=== PATIENT | male | born 1970 | race American Indian/Alaskan Native ===

== ENCOUNTER 2017-04-01 02:44 | Emergency (ER) | payer MEDICARE, OTHER ==
[2017-04-01] MEDS ORDERED: APRESOLINE ONE (03:36)
[2017-04-01] MEDS ORDERED: CATAPRES ONE (03:36)
== END 2017-04-01 03:30 | disposition left against medical advice (07) ==
LOC: ED 02:44
DX: M25.569 Pain in unspecified knee (principal); Z53.21 Procedure and treatment not carried out due to patient leaving prior to being seen by health care provider

== ENCOUNTER 2017-04-04 01:32 | Emergency (ER) | payer MEDICARE, OTHER ==
[2017-04-04] MEDS ORDERED: TYLENOL ONE (02:06)
[2017-04-04] MEDS ORDERED: TYLENOL PO ONE (02:12)
[2017-04-04] MEDS ORDERED: NACL 0.9% 500 ML IR ONE (03:12)
[2017-04-04] MEDS ORDERED: NACL 0.9% IR ONE (03:17)
--- NOTE | 2017-04-04 03:47 | Emergency Department Report ---
- General Chief Complaint: Wound/Laceration Stated Complaint: FINGER SORE/PAIN Time Seen by Provider: 04/04/17 03:34 Source: patient Mode of arrival: Ambulatory Limitations: No Limitations - History of Present Illness Initial Comments: 46-year-old male past medical history PTSD schizophrenia presents with complaint of right distal fifth finger laceration. Patient states he was cooking using a steak knife and accidentally ran knife across the dorsal side of his fifth finger between MCP and PIP joint. Visible one-inch laceration horizontal very straight on finger. Minimal bleeding. Patient states his tetanus is up-to-date. Denies any other injuries. aao 3 fully cooperative states that it was accidental. Onset/Timin -: hour(s) Extremity Location: Right: Hand (visible laceration across fifth digit) Place: home Patient Tetanus UTD: Yes Context: accidental Associated Symptoms: none - Related Data Home Medications Medication Instructions Recorded Confirmed Last Taken FLUoxetine [Prozac] 20 mg PO QDAY 07/17/13 07/27/14 11/01/13 09:00 Lurasidone HCl [Latuda] 120 mg PO QDAY 07/17/13 07/28/14 11/01/13 09:00 Paliperidone Palmitate [Invega 234 mg IM QMONTH 07/17/13 07/28/14 11/01/13 09:00 Sustenna] Previous Rx's Medication Instructions Recorded Last Taken Type LORazepam [Ativan] 0.5 mg PO QHS #10 tablet 11/02/13 Unknown Rx traMADol [Ultram 50 MG tab] 50 mg PO Q6HR PRN #15 tablet 05/23/16 Unknown Rx Cephalexin [Keflex] 500 mg PO Q12HR #10 cap 04/04/17 Unknown Rx Ibuprofen [Motrin] 600 mg PO Q8H PRN #20 tablet 04/04/17 Unknown Rx Allergies Allergy/AdvReac Type Severity Reaction Status Date / Time No Known Allergies Allergy Verified 04/01/17 03:42 ED Review of Systems ROS: Stated complaint: FINGER SORE/PAIN Other details as noted in HPI Constitutional: denies: chills, fever Eyes: denies: eye pain, eye discharge, vision change ENT: denies: ear pain, throat pain Respiratory: denies: cough, shortness of breath, wheezing Cardiovascular: denies: chest pain, palpitations Endocrine: no symptoms reported Gastrointestinal: denies: abdominal pain, nausea, diarrhea Genitourinary: denies: urgency, dysuria Musculoskeletal: denies: back pain, joint swelling, arthralgia Skin: denies: rash, lesions Neurological: denies: headache, weakness, paresthesias Psychiatric: denies: anxiety, depression Hematological/Lymphatic: denies: easy bleeding, easy bruising ED Past Medical Hx - Past Medical History Previous Medical History?: Yes Hx Psychiatric Treatment: Yes (PTSD, Schizophrenia) - Surgical History Past Surgical History?: Yes Hx Cholecystectomy: Yes Hx Appendectomy: Yes - Social History Smoking Status: Current Every Day Smoker Substance Use Type: Alcohol - Medications Home Medications: Home Medications Medication Instructions Recorded Confirmed Last Taken Type FLUoxetine [Prozac] 20 mg PO QDAY 07/17/13 07/27/14 11/01/13 09:00 History Lurasidone HCl [Latuda] 120 mg PO QDAY 07/17/13 07/28/14 11/01/13 09:00 History Paliperidone Palmitate [Invega 234 mg IM QMONTH 07/17/13 07/28/14 11/01/13 09: 00 History Sustenna] LORazepam [Ativan] 0.5 mg PO QHS #10 tablet 11/02/13 07/27/14 Unknown Rx traMADol [Ultram 50 MG tab] 50 mg PO Q6HR PRN #15 tablet 05/23/16 Unknown Rx Cephalexin [Keflex] 500 mg PO Q12HR #10 cap 04/04/17 Unknown Rx Ibuprofen [Motrin] 600 mg PO Q8H PRN #20 tablet 04/04/17 Unknown Rx ED Physical Exam - General Limitations: No Limitations General appearance: alert, in no apparent distress - Head Head exam: Present: atraumatic, normocephalic - Eye Eye exam: Present: normal appearance - ENT ENT exam: Present: mucous membranes moist - Neck Neck exam: Present: normal inspection - Respiratory Respiratory exam: Present: normal lung sounds bilaterally. Absent: respiratory distress - Cardiovascular Cardiovascular Exam: Present: regular rate, normal rhythm. Absent: systolic murmur, diastolic murmur, rubs, gallop - GI/Abdominal GI/Abdominal exam: Present: soft, normal bowel sounds - Rectal Rectal exam: Present: deferred - Extremities Exam Extremities exam: Present: normal inspection - Expanded Upper Extremity Exam Right General: Present: other Shoulder Exam: Present: normal inspection, full ROM Upper Arm exam: Present: normal inspection, full ROM Elbow exam: Present: normal inspection, full ROM Forearm Wrist exam: Present: normal inspection, full ROM Hand Wrist exam: Present: laceration Hand L/R Front: 1 - Positive: laceration (1 inch horizontal laceration minimal separation of skin) Neuro motor exam: Present: wrist extension intact, thumb opposition intact, thumb IP flexion intact, thumb adduction intact, fingers 2-5 abduction intact Vascular: Present: normal capillary refill (capillary refill less than one second in all fingers, distal radial and ulnar pulses intact range of motion fingers fully intact on clinical exam) - Back Exam Back exam: Present: normal inspection - Neurological Exam Neurological exam: Present: alert, oriented X3 - Psychiatric Psychiatric exam: Present: normal affect, normal mood - Skin Skin exam: Present: warm, dry, intact, normal color. Absent: rash ED Course Vital Signs 04/04/17 02:00 Temperature 98.1 F Pulse Rate 86 Respiratory 16 Rate Blood Pressure 128/75 [Right] O2 Sat by Pulse 100 Oximetry - Laceration /Wound Repair Right Finger Wound Location: upper extremity (right pinky finger) Wound Length (cm): 2 Wound's Depth, Shape: superficial, linear Irrigated w/ Saline (ccs): 1,000 Betadine Prep?: Yes Anesthesia: Lidocaine w/ Epi Volume Anesthetic (ccs): 3 Wound Debrided: minimal Wound Repaired With: sutures Suture Size/Type: 4:0, nylon Number of Sutures: 6 Layer Closure?: No Sterile Dressing Applied?: Yes (gauze with finger splint) Progress: Procedure tolerated well minimal bleeding good closure achieved ED Medical Decision Making - Medical Decision Making A/P: Right pinky finger Laceration 1-sutures to be removed in 10-12 days 2-tetanus up-to-date patient states he received a tetanus updated within the last 5 years 3-Motrin when necessary, triple antibiotic ointment 4- pt advised to return to the ED for any fevers chills pus drainage erythema at site of laceration 5- x-ray unremarkable, patient provided with finger splint for protection of wound site. Range of motion at the DIP PIP and MCP intact against resistance, distal sensation is intact and capillary refill is less than 1 second in the finger. Critical care attestation.: If time is entered above; I have spent that time in minutes in the direct care of this critically ill patient, excluding procedure time. ED Disposition Clinical Impression: Finger laceration Qualifiers: Encounter type: initial encounter Finger: little finger Damage to nail status: with damage Foreign body presence: without foreign body Laterality: right Qualified Code(s): S61.316A - Laceration without foreign body of right little finger with damage to nail, initial encounter Disposition: TO HOME OR SELFCARE Is pt being admited?: No Does the pt Need Aspirin: No Condition: Stable Instructions: Suture Care (ED), Laceration (ED) Additional Instructions: Patient to return to the ED or urgent care for suture removal in 10-12 days Prescriptions: Cephalexin [Keflex] 500 mg PO Q12HR #10 cap Ibuprofen [Motrin] 600 mg PO Q8H PRN #20 tablet PRN Reason: Pain Referrals: [facility] [Outside] - 3-5 Days Forms: Work/School Release Form(ED) Time of Disposition: 04:25
--- NOTE | 2017-04-04 03:56 | XRay Report ---
FINAL REPORT PROCEDURE: XR HAND 3 RT TECHNIQUE: Right hand radiographs, AP, lateral, and oblique views. CPT 48726 HISTORY: lac, send for report COMPARISON: No prior studies are available for comparison. FINDINGS: Fracture (s) and/or Dislocation(s): None . Alignment: Normal . Joint space(s): Normal . Soft tissues: Normal . Bone mineralization: Normal . Foreign bodies: None . IMPRESSION: Normal Examination .
[2017-04-04 04:39] VITALS: BP 136/85
== END 2017-04-04 04:39 | disposition home or self-care (01) ==
LOC: ED 01:32
DX: S61.216A Laceration without foreign body of right little finger without damage to nail, initial encounter (principal); F20.9 Schizophrenia, unspecified; F43.10 Post-traumatic stress disorder, unspecified; F17.200 Nicotine dependence, unspecified, uncomplicated; W26.0XXA Contact with knife, initial encounter; Y93.G3 Activity, cooking and baking; Y99.8 Other external cause status; Y92.89 Other specified places as the place of occurrence of the external cause

== ENCOUNTER 2017-06-08 15:52 | Emergency (ER) | payer MEDICARE, OTHER ==
[2017-06-08 16:28] LABS: Urine Drugs of Abuse Note Disclamer
[2017-06-08 16:47] LABS: Bilirubin,Urine NEG (Negative); Blood,Urine MOD (Negative); Ketones,Urine NEG (Negative); Leukocyte Esterase,Urine NEG (Negative); Mucus,Urine FEW /HPF; Nitrite,Urine NEG (Negative); Urobilinogen,Urine < 2.0 mg/dL (<2.0)
[2017-06-08 17:07] LABS: Basophils % (Auto) 0.7 % (0.0-1.8); Eosinophils % (Auto) 0.3 % (0.0-4.3); Hematocrit 43.2 % (35.5-45.6); Hemoglobin 14.5 gm/dl (11.8-15.2); Mean Corpuscular HGB Conc 33 % (32-34); Mean Corpuscular Hemoglobin 30 pg (28-32); Mean Corpuscular Volume 88 fl (84-94); Platelet Count 253 K/mm3 (140-440); Red Cell Distribution Width 14.1 % (13.2-15.2); White Blood Count 9.9 K/mm3 (4.5-11.0)
[2017-06-08 17:10] LABS: Anion Gap 19 mmol/L; BUN/Creatinine Ratio 11.81; Blood Urea Nitrogen 13 mg/dL (9-20); Calcium 8.8 mg/dL (8.4-10.2); Carbon Dioxide 23 mmol/L (22-30); Chloride 101.3 mmol/L (98-107); Glucose 110 mg/dL (75-100); Potassium 3.9 mmol/L (3.6-5.0); Sodium 139 mmol/L (137-145)
--- NOTE | 2017-06-08 18:32 | Emergency Department Report ---
HPI - General Chief Complaint: Psych Time Seen by Provider: 06/08/17 16:30 - HPI HPI: 46-year-old male presents to the emergency department via police after he called them saying that he wanted to find a way to get to the government because they owe him a [employer] automobile. The patient also says that he feels that all of the Germans and Jews need to go back to the gas chamber and he is going to try and help to kill them. The patient has multiple other nonsensical and/or tangential thoughts or complaints. He says that his only past medical history is PTSD. The patient is on buspirone, Risperdal, among other psychiatric medications. ED Past Medical Hx - Past Medical History Hx Psychiatric Treatment: Yes (PTSD, Schizophrenia) - Surgical History Hx Cholecystectomy: Yes Hx Appendectomy: Yes - Social History Smoking Status: Never Smoker Substance Use Type: None - Medications Home Medications: Home Medications Medication Instructions Recorded Confirmed Last Taken Type FLUoxetine [Prozac] 20 mg PO QDAY 07/17/13 07/27/14 11/01/13 09:00 History Lurasidone HCl [Latuda] 120 mg PO QDAY 07/17/13 07/28/14 11/01/13 09:00 History Paliperidone Palmitate [Invega 234 mg IM QMONTH 07/17/13 07/28/14 11/01/13 09: 00 History Sustenna] LORazepam [Ativan] 0.5 mg PO QHS #10 tablet 11/02/13 07/27/14 Unknown Rx traMADol [Ultram 50 MG tab] 50 mg PO Q6HR PRN #15 tablet 05/23/16 Unknown Rx Cephalexin [Keflex] 500 mg PO Q12HR #10 cap 04/04/17 Unknown Rx Ibuprofen [Motrin] 600 mg PO Q8H PRN #20 tablet 04/04/17 Unknown Rx ED Review of Systems ROS: Stated complaint: 1013 Other details as noted in HPI Comment: All other systems reviewed and negative Constitutional: denies: chills, fever Eyes: denies: eye pain, eye discharge, vision change ENT: denies: ear pain, throat pain Respiratory: denies: cough, shortness of breath, wheezing Cardiovascular: denies: chest pain, palpitations Gastrointestinal: denies: abdominal pain, nausea, diarrhea Genitourinary: denies: urgency, dysuria Musculoskeletal: denies: back pain, joint swelling, arthralgia Skin: denies: rash, lesions Neurological: denies: headache, weakness, paresthesias Psychiatric: homicidal thoughts. denies: auditory hallucinations, visual hallucinations Physical Exam - Physical Exam Vital Signs: Vital Signs 06/08/17 16:02 Temperature 99 F Pulse Rate 78 Respiratory 18 Rate Blood Pressure 169/91 O2 Sat by Pulse 99 Oximetry Physical Exam: GENERAL: The patient is well-developed well-nourished. HENT: Normocephalic. Atraumatic. Patient has moist mucous membranes. EYES: Extraocular motions are intact. Pupils equal reactive to light bilaterally. NECK: Supple. Trachea is midline. CHEST/LUNGS: Clear to auscultation. There is no respiratory distress noted. HEART/CARDIOVASCULAR: Regular. There is no tachycardia. There is no gallop rub or murmur. ABDOMEN: Abdomen is soft, nontender. Patient has normal bowel sounds. There is no abdominal distention. SKIN: There is no rash. There is no edema. There is no diaphoresis. NEURO: The patient is awake, alert, and oriented. The patient is cooperative. The patient has no focal neurologic deficits. Normal gait. No slurred speech. MUSCULOSKELETAL: There is no tenderness or deformity. There is no limitation range of motion. There is no evidence of acute injury. PSYCH: Patient displays tangential thoughts and delusions and has pressured speech. ED Course Vital Signs 06/08/17 16:02 Temperature 99 F Pulse Rate 78 Respiratory 18 Rate Blood Pressure 169/91 O2 Sat by Pulse 99 Oximetry ED Medical Decision Making - Lab Data Result diagrams: 06/08/17 16:39 06/08/17 16:39 - Medical Decision Making 46-year-old male presents to the emergency department after calling the police and showing them that he was having delusions and/or psychosis. The patient has homicidal ideations towards Germans and [place] people. He also is delusional that the government is going to buy him an automobile and that he is going to do that by getting to them by [facility] police. He appears to have more psychiatric issues then just PTSD. He has been made a 1013 secondary to his psychosis and homicidal ideations. Labs are unremarkable. Vital signs stable. He appears medically cleared for psychiatric placement. - Differential Diagnosis schizophrenia, bipolar disorder, schizoaffective, substance abuse Critical Care Time: No Critical care attestation.: If time is entered above; I have spent that time in minutes in the direct care of this critically ill patient, excluding procedure time. ED Disposition Clinical Impression: Homicidal ideations Psychosis Qualifiers: Psychosis type: unspecified psychosis type Qualified Code(s): F29 - Unspecified psychosis not due to a substance or known physiological condition Hypertension Qualifiers: Hypertension type: essential hypertension Qualified Code(s): I10 - Essential ( primary) hypertension Disposition: DC/TX-65 PSY HOSP/PSY UNIT Is pt being admited?: No Condition: Stable Instructions: Hypertension (ED) Referrals: PRIMARY CAREMD [Primary Care Provider] - 3-5 Days Time of Disposition: 18:34
[2017-06-08] MEDS ORDERED: CATAPRES PO ONE (18:34)
[2017-06-09] MEDS ORDERED: ATIVAN IM ONE (01:49)
[2017-06-09] MEDS ORDERED: GEODON IM ONE (01:49)
[2017-06-09] MEDS ORDERED: ATIVAN ONE (01:55)
[2017-06-09] MEDS ORDERED: WATER FOR INJ (PF) 10 ML ONE (01:56)
--- NOTE | 2017-06-09 13:33 | Consultation ---
History of Present Illness - Reason for Consult Consult date: 06/09/17 Reason for consult: Mental Health Evaluation Requesting physician: DERICK CONTE - Chief Complaint Chief complaint: "It's the government" - History of Present Psychiatric Illness 46-year-old male presents to the emergency department via police after he called them saying that he wanted to find a way to get to the [place] because they owe him a [employer] automobile. Today the patient is irritable, anxious with a disorganized thought process. He stated that he called the police to help him get a ride to the [place] to sign papers. He stated that the [employer] is "screwing" up his money. He went on to talk about how "black people" don't like him. After asking him to elaborate more about his feeling reference the government and black people he refused. He stated there's a bus stop in front of his home that's causing him anxiety and he worries about his safety. The patient had to be redirected multiple times, possibly responding to some type of stimuli. Also, I had to interject to try to keep the patient on the right topic. He denies SI/HI's, AVH's, and depression. He denies sleep disturbance and a poor appetite. He admitted to using cocaine 2 days ago, but denies excessive alcohol consumption. He stated taking Risperdal, Buspar, the Invega injection and Prozac in the past. Medications and Allergies Allergies Allergy/AdvReac Type Severity Reaction Status Date / Time No Known Allergies Allergy Verified 06/08/17 16:02 Home Medications Medication Instructions Recorded Confirmed Last Taken Type FLUoxetine [Prozac] 20 mg PO QDAY 07/17/13 07/27/14 11/01/13 09:00 History Lurasidone HCl [Latuda] 120 mg PO QDAY 07/17/13 07/28/14 11/01/13 09:00 History Paliperidone Palmitate [Invega 234 mg IM QMONTH 07/17/13 07/28/14 11/01/13 09: 00 History Sustenna] LORazepam [Ativan] 0.5 mg PO QHS #10 tablet 11/02/13 07/27/14 Unknown Rx traMADol [Ultram 50 MG tab] 50 mg PO Q6HR PRN #15 tablet 05/23/16 Unknown Rx Cephalexin [Keflex] 500 mg PO Q12HR #10 cap 04/04/17 Unknown Rx Ibuprofen [Motrin] 600 mg PO Q8H PRN #20 tablet 04/04/17 Unknown Rx Past psychiatric history - Past Medical History Past Surgical History: Other (Cholecystectomy and Appendectomy) - past Psychiatric treatment and history Psych: Schizophrenia psychiatric treatment history: He stated that he see a psychiatrist at the [place]. Denies a fam psy hx. - Social History Social history: Lives alone (College graduate) Mental Status Exam - Vital signs Last Vital Signs Temp 98.1 F 06/08/17 19:10 Pulse 79 06/08/17 19:10 Resp 18 06/09/17 11:37 BP 143/89 06/08/17 23:14 Pulse Ox 99 06/08/17 19:10 - Exam Narrative exam: ROS: (+) psychosis MSE: Appearance: irritable, anxious Behavior: regular eye contact Speech: loud rambling Mood: "I am okay" Affect: labile Thought Process: disorganized Thought Content: denies SI/HI's and AVH's, paranoid Motor Activity: ambulatory Cognition: A/Ox 3 Insight: limited Judgment: limited Results Result Diagrams: 06/08/17 16:39 06/08/17 16:39 Abnormal lab results 06/08/17 Range/Units 16:39 Glucose 110 H (75-100) mg/dL All other labs normal. Assessment and Plan Assessment and plan: Impression: Historical Dx: Schizophrenia. Acute psychosis. Substance Use DO ( cocaine). Today the patient is irritable, anxious with a disorganized thought process. Positive for cocaine. DDx: R/O Bipolar, R/O Substance Induced Psychosis, Schizaffective DO Recommendation/Plan: Continue 1013 with placement to inpatient psy services. Start Buspar 10 mg PO BID, Risperdal 1 mg PO HS for schizophrenia and Cogentin 0 /5 mg PO HS for EPS prevention. Discussed possible metabolic side effects of Risperdal with patient.
[2017-06-09] MEDS ORDERED: BUSPAR PO SCH (14:30)
[2017-06-09] MEDS ORDERED: RisperDAL PO SCH (22:00)
[2017-06-09] MEDS ORDERED: COGENTIN PO SCH (22:00)
--- NOTE | 2017-06-10 16:09 | Progress Note ---
Subjective - Reason for Consult Consult date: 06/10/17 Reason for consult: psychiatric follow up - Chief Complaint Chief complaint: "I don't like black people." 46-year-old male presented to the emergency department via police after he called them saying that he wanted to find a way to get to the government because they owe him a [employer] automobile. Today the patient is irritable, anxious with a disorganized thought process. He, again, as stated in the previous evaluation, stated that he called the police to help him get a ride to the [place] to sign papers. The patient had to be redirected multiple times. He denies SI/HI's, AVH's, and depression. Mental Status Exam - Exam Narrative exam: ROS: (+) psychosis MSE: Appearance: irritable, anxious Behavior: regular eye contact Speech: loud, tangential Mood: agitated Affect: labile Thought Process: disorganized Thought Content: denies SI/HI's and AVH's, paranoid Motor Activity: ambulatory Cognition: A/Ox 3 Insight: limited Judgment: limited Assessment and plan: Impression: Historical Dx: Schizophrenia. Acute psychosis. Substance Use DO ( cocaine). Today the patient is irritable, anxious with a disorganized thought process. Positive for cocaine. DDx: R/O Bipolar, R/O Substance Induced Psychosis, Schizaffective DO Recommendation/Plan: Continue 1013 with placement to inpatient psy services. Continue Buspar 10 mg PO BID, Risperdal 1 mg PO HS for schizophrenia and Cogentin 0.5 mg PO HS for EPS prevention. Mental Status Exam - Vital signs Last Vital Signs Temp 98 F 06/10/17 14:45 Pulse 76 06/10/17 14:45 Resp 18 06/10/17 14:45 BP 119/78 06/10/17 14:45 Pulse Ox 98 06/10/17 14:45
[2017-06-10 17:50] VITALS: BP 114/70
[2017-06-10] MEDS ORDERED: RisperDAL PO SCH (22:00)
== END 2017-06-10 18:59 ==
LOC: ED 15:52 → EEVIPCON 15:52 → ED 06-10 18:59
DX: R45.850 Homicidal ideations (principal); F29 Unspecified psychosis not due to a substance or known physiological condition; I10 Essential (primary) hypertension; F20.9 Schizophrenia, unspecified
CPT/HCPCS: 36415; 80048; 80307; 81001; 85025; 96372; 99285; G0480; J2060; J3486; 80320

== ENCOUNTER 2017-11-23 13:15 | Emergency (ER) | payer MEDICARE ==
[2017-11-23] MEDS ORDERED: HALDOL ONE (13:29)
[2017-11-23] MEDS ORDERED: BENADRYL ONE (13:29)
[2017-11-23] MEDS ORDERED: ATIVAN ONE (13:29)
[2017-11-23] MEDS ORDERED: HALDOL IM ONE (13:51)
[2017-11-23] MEDS ORDERED: BENADRYL IM ONE (13:51)
[2017-11-23] MEDS ORDERED: ATIVAN IM ONE (13:52)
[2017-11-23 14:07] LABS: Basophils % (Auto) 0.4 % (0.0-1.8); Eosinophils # (Auto) 0.2 K/mm3 (0.0-0.4); Eosinophils % (Auto) 2.3 % (0.0-4.3); Hematocrit 40.9 % (35.5-45.6); Hemoglobin 13.7 gm/dl (11.8-15.2); Lymphocytes # (Auto) 3.8 K/mm3 (1.2-5.4); Lymphocytes % (Auto) 52.2 % (13.4-35.0); Mean Corpuscular HGB Conc 33 % (32-34); Mean Corpuscular Hemoglobin 29 pg (28-32); Mean Corpuscular Volume 88 fl (84-94); Monocytes # (Auto) 0.5 K/mm3 (0.0-0.8); Monocytes % (Auto) 7.1 % (0.0-7.3); Platelet Count 207 K/mm3 (140-440); Red Blood Count 4.67 M/mm3 (3.65-5.03); Red Cell Distribution Width 12.9 % (13.2-15.2)
[2017-11-23 14:15] LABS: BUN/Creatinine Ratio 15; Blood Urea Nitrogen 12 mg/dL (9-20); Calcium 8.7 mg/dL (8.4-10.2); Hemolysis Index 4
--- NOTE | 2017-11-23 15:45 | Emergency Department Report ---
HPI - General Time Seen by Provider: 11/23/17 13:39 - HPI HPI: This is a 46-year-old -[place] male presents to the emergency department via PD after just being released from alf. Patient has a history of schizophrenia and apparently was refusing all of his medication while he was incarcerated. As soon as he left alf he apparently started exhibiting signs of acute psychosis. The secretary of police said that he told him that he wanted to harm himself. Since the patient has been in the emergency department he has been showing disorganized thoughts, making threats towards ED staff. He keeps rambling about some type of orthodox persecution. Patient is not cooperative and is a poor historian. ED Past Medical Hx - Past Medical History Hx Psychiatric Treatment: Yes (PTSD, Schizophrenia) - Surgical History Hx Cholecystectomy: Yes Hx Appendectomy: Yes - Social History Smoking Status: Never Smoker Substance Use Type: None - Medications Home Medications: Home Medications Medication Instructions Recorded Confirmed Last Taken Type FLUoxetine [Prozac] 20 mg PO QDAY 07/17/13 11/23/17 11/01/13 09:00 History Lurasidone HCl [Latuda] 120 mg PO QDAY 07/17/13 11/23/17 11/01/13 09:00 History Paliperidone Palmitate(Nf) [Invega 234 mg IM QMONTH 07/17/13 11/23/17 11/01/13 09:00 History Sustenna] LORazepam [Ativan] 0.5 mg PO QHS #10 tablet 11/02/13 11/23/17 Unknown Rx traMADol [Ultram 50 MG tab] 50 mg PO Q6HR PRN #15 tablet 05/23/16 11/23/17 Unknown Rx Cephalexin [Keflex] 500 mg PO Q12HR #10 cap 04/04/17 11/23/17 Unknown Rx Ibuprofen [Motrin] 600 mg PO Q8H PRN #20 tablet 04/04/17 11/23/17 Unknown Rx ED Review of Systems ROS: Stated complaint: MH EVAL Other details as noted in HPI Comment: Unobtainable due to pts medical conditions Physical Exam - Physical Exam Physical Exam: GENERAL: The patient is well-developed well-nourished. HENT: Normocephalic. Atraumatic. Patient has moist mucous membranes. EYES: Extraocular motions are intact. Pupils equal reactive to light bilaterally. NECK: Supple. Trachea is midline. CHEST/LUNGS: Clear to auscultation. There is no respiratory distress noted. HEART/CARDIOVASCULAR: Regular. There is no tachycardia. There is no murmur. ABDOMEN: Abdomen is soft, nontender. Patient has normal bowel sounds. There is no abdominal distention. SKIN: Skin is warm and dry. NEURO: Patient is awake and follows some commands. Normal speech. Normal gait. MUSCULOSKELETAL: There is no tenderness or deformity. There is no limitation range of motion. There is no evidence of acute injury. PSYCH: Disorganized speech, tangential thoughts, pressured speech. ED Medical Decision Making - Lab Data Result diagrams: 11/23/17 13:47 11/23/17 13:47 - Medical Decision Making Patient presented for a mental health evaluation and appears to have some acute psychosis. Allegedly he was very aggressive prior to arrival. He certainly is not cooperative here. He appears to have some disorganized and pressured speech and tangential thoughts. He has made some threats towards ED staff. Allegedly he told the secretary of police that he wanted to harm himself. For these reasons patient has been made a 1013. His blood work has come back and does not show any significant abnormalities or any etiology of his symptoms. We are waiting for urine drug screen and urinalysis I do not believe that any of that would keep him from being medically cleared for psychiatric placement. Critical Care Time: No Critical care attestation.: If time is entered above; I have spent that time in minutes in the direct care of this critically ill patient, excluding procedure time. ED Disposition Clinical Impression: Delusions Psychosis Qualifiers: Psychosis type: unspecified psychosis type Qualified Code(s): F29 - Unspecified psychosis not due to a substance or known physiological condition Disposition: DC/TX-65 PSY HOSP/PSY UNIT Is pt being admited?: No Condition: Stable Referrals: PRIMARY CARE [Primary Care Provider] - 3-5 Days
[2017-11-24 04:49] LABS: Bilirubin,Urine NEG (Negative); Blood,Urine NEG (Negative); Color,Urine Yellow (Yellow); Mucus,Urine FEW /HPF; Protein,Urine <15 mg/dL mg/dL (Negative); WBC,Urine < 1.0 /HPF (0.0-6.0)
[2017-11-24 04:54] LABS: Amphetamine Screen,Urine PRESUMPTIVE NEGATIVE; Benzodiazepines Screen,Urine PRESUMPTIVE NEGATIVE; Cannabinoid Screen,Urine PRESUMPTIVE NEGATIVE; Cocaine Screen,Urine PRESUMPTIVE NEGATIVE; Methadone Screen,Urine PRESUMPTIVE NEGATIVE; Opiate Screen,Urine PRESUMPTIVE NEGATIVE
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
[2017-11-24] MEDS ORDERED: RisperDAL PO SCH (22:00)
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
[2017-11-25] MEDS: RisperDAL PO SCH (22:18)
[2017-11-26] MEDS: RisperDAL PO SCH ×2 (10:58→22:30)
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
--- NOTE | 2017-11-27 12:12 | Progress Note ---
Subjective - Reason for Consult Consult date: 11/27/17 Reason for consult: Psychiatry Follow-up - Chief Complaint Chief complaint: "I need to leave" This is a 46-year-old -Surinamese male presents to the emergency department via PD after just being released from detention. Today the patient is calm , but hyper verbal during the assessment. When asked about his mental dx, he stated that he receive the monthly Invega injection for PTSD and anxiety. The patient is still disorganized during the interview. He denies SI/HIs and AVH's. He denies any side effects of his medication. Mental Status Exam - Vital signs Last Vital Signs Temp 98 F 11/26/17 20:00 Pulse 67 11/26/17 20:00 Resp 20 11/27/17 10:03 BP 117/76 11/26/17 20:00 Pulse Ox 99 11/26/17 20:00 - Exam Narrative exam: MSE: Appearance: calm, cooperative Behavior: regular eye contact Speech: pressured speech, hyper verbal Mood: "okay" Affect: congruent to mood Thought Process: tangential Thought Content: denies SI/HI's and AVH's, disorganized Motor Activity: ambulatory Cognition: A/O x 3 Insight: limited Judgment: limited Assessment and Plan Impression: Unspecified Psychosis on admission. Today the patient is calm and cooperative during the assessment. DDx: Schizophrenia, R/O Bipolar DO Recommendation/Plan: Continue 1013 with placement to inpatient psy services. Continue Risperdal 1 mg PO BID for psychosis/mood. Discussed possible metabolic side effects of Risperdal with patient.
[2017-11-27] MEDS: RisperDAL PO SCH ×2 (12:42→22:52)
[2017-11-27] MEDS ORDERED: GEODON IM ONE ×2 (15:43→15:44)
[2017-11-27] MEDS ORDERED: WATER FOR INJ (PF) 10 ML ONE (15:45)
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
[2017-11-28] MEDS: RisperDAL PO SCH ×2 (11:40→22:13)
[2017-11-29] MEDS: RisperDAL PO SCH ×2 (10:36→21:56)
[2017-11-30] MEDS: RisperDAL PO SCH ×2 (11:46→21:41)
--- NOTE | 2017-11-30 11:51 | Progress Note ---
Subjective - Reason for Consult Consult date: 11/30/17 Reason for consult: Psychiatry Follow-up - Chief Complaint Chief complaint: "When can I leave" This is a 46-year-old -Gambian male presents to the emergency department via PD after just being released from [facility]. Today the patient is calm and cooperative during the assessment. The patient is more organized and lucid today than previous interviews. He stated that he would follow up with outpatient psy services when discharged. He denies SI/HI's and AVH's. He denies any side effects of his medication. Mental Status Exam - Vital signs Last Vital Signs Temp 98.5 F 11/29/17 22:00 Pulse 64 11/29/17 22:00 Resp 18 11/29/17 22:00 BP 108/74 11/29/17 22:00 Pulse Ox 98 11/29/17 22:00 - Exam Narrative exam: MSE: Appearance: calm, cooperative Behavior: regular eye contact Speech: regular rate and tone Mood: "okay" Affect: congruent to mood Thought Process: linear Thought Content: denies SI/HI's and AVH's Motor Activity: ambulatory Cognition: A/O x 3 Insight: fair Judgment: fair Assessment and Plan Impression: Unspecified Psychosis on admission. Today the patient is calm and cooperative during the assessment. DDx: Schizophrenia, R/O Bipolar DO Recommendation/Plan: Rescind 1013. Continue Risperdal 1 mg PO BID for psychosis/ mood. Discussed possible metabolic side effects of Risperdal with patient. I called Estefania Roberts at his payee, at [phone] with no answer. I could not leave a message. [employer] involvement, patient will need appropriate placement. The patient can follow up with [facility] for outpatient psy services.
[2017-12-01] MEDS: RisperDAL PO SCH (10:35)
--- NOTE | 2017-12-01 11:45 | Progress Note ---
Subjective - Reason for Consult Consult date: 12/01/17 Reason for consult: Psychiatry Follow-up - Chief Complaint Chief complaint: "I'm leaving" This is a 46-year-old -Indonesian male presents to the emergency department via PD after just being released from snf. Today the patient is calm and cooperative during the assessment. The patient denies SI/HI's and AVH' s. He denies any side effects of his medication. Mental Status Exam - Vital signs Last Vital Signs Temp 98.3 F 11/30/17 22:00 Pulse 73 11/30/17 22:00 Resp 18 11/30/17 22:00 BP 130/90 11/30/17 22:00 Pulse Ox 98 11/30/17 22:00 - Exam Narrative exam: MSE: Appearance: calm, cooperative Behavior: regular eye contact Speech: regular rate and tone Mood: "okay" Affect: congruent to mood Thought Process: linear Thought Content: denies SI/HI's and AVH's Motor Activity: ambulatory Cognition: A/O x 3 Insight: appropriate Judgment: appropriate Assessment and Plan Impression: Unspecified Psychosis on admission. Today the patient is calm and cooperative during the assessment. DDx: Schizophrenia, R/O Bipolar DO Recommendation/Plan: Continue Risperdal 1 mg PO BID for psychosis/mood. Discussed possible metabolic side effects of Risperdal with patient. I called Estefania Roberts at his payee, at [phone] with no answer. I could not leave a message. [employer] involvement, patient will need appropriate placement. The patient can follow up with [facility] for outpatient psy services. The patient is pending placement per [employer].
[2017-12-01 12:18] VITALS: BP 125/78
== END 2017-12-01 16:40 ==
LOC: EEVIPCON 13:15 → ED 13:15
DX: F22 Delusional disorders (principal); F29 Unspecified psychosis not due to a substance or known physiological condition; F20.9 Schizophrenia, unspecified
CPT/HCPCS: 36415; 80048; 80307; 81001; 85025; 96372; 99285; G0480; J1200; J1630; J2060; J3486; 80320